=== PATIENT | female | born 1945 | race Caucasian/White ===

== ENCOUNTER → 2017-09-03 10:12 | Outpatient (CLI) | payer MEDICARE, SELFPAY ==
--- NOTE | 2017-09-03 10:17 | RAD_ITS ---
STUDY: X-RAY CHEST REASON FOR EXAM: Female, 71 years old. Dyspnea with exertion TECHNIQUE: Frontal and lateral views of the chest. COMPARISON: None. FINDINGS: The lungs are clear and expanded. There is no demonstrated pleural abnormality. Normal size heart. Normal mediastinum and elia. Normal visualized pulmonary arteries. Normal visualized aortic arch and descending thoracic aorta. There is a levoscoliosis of the thoracic spine. Normal visualized ribs, clavicles, and shoulders. There is no demonstrated abnormality of the visualized soft tissue structures of the upper abdomen. RAD/Chest PA and Lateral IMPRESSION: No acute cardiopulmonary disease. Electronically Signed: Ezekiel Henson DO at 23:57 EDT , Service support ,
== END ==
PROVIDERS: Family Provider Nurse Practitioner; PCP Nurse Practitioner; Visit Provider Internal Medicine
DX: R06.09 Other forms of dyspnea (principal)
CPT/HCPCS: 71046

== ENCOUNTER → 2017-09-18 13:10 | Outpatient (CLI) | payer MEDICARE, SELFPAY | PROVIDERS: Family Provider Nurse Practitioner; PCP Nurse Practitioner; Visit Provider Internal Medicine | DX: R00.1 Bradycardia, unspecified (principal); R06.09 Other forms of dyspnea | CPT/HCPCS: 93225; 93226 ==

== ENCOUNTER → 2017-09-19 14:32 | Outpatient (CLI) | payer MEDICARE, SELFPAY ==
--- NOTE | 2017-09-19 15:06 | ECHOD_ITS ---
Reason For Study: MACDONALD Procedure This was a 2D Doppler, Color Flow transthoracic echocardiogram. The exam was of fair technical quality due to body habitus. Exam performed in department. Left Ventricle Normal LV size. Left ventricular systolic function is normal. The estimated ejection fraction is 60 %. Normal diastology for age. No regional wall motion abnormalities noted. Right Ventricle Normal RV size. Normal systolic function. Atria The left atrium is moderately enlarged. Normal right atrium. No doppler evidence for ASD. Mitral Valve There is mild mitral annular calcification. Normal mitral valve. Mild (1+) mitral valve insufficiency. Tricuspid Valve Normal tricuspid valve. Mild tricuspid valve insufficiency. Right ventricular systolic pressure estimated to be 32 mmHg. Aortic Valve Trisinus/trileaflet aortic valve. Normal aortic valve. Pulmonic Valve The pulmonic valve is not well visualized. Trivial pulmonic valve insufficiency. Great Vessels Normal sized aortic root. Pericardium/Pleural No pericardial effusion. MMode/2D Measurements & Calculations LVIDd: 4.6 cm IVSd: 0.80 cm Ao root diam: 3.0 cm LVIDs: 3.3 cm LVPWd: 0.88 cm LA dimension: 3.9 cm RVDd: 3.6 cm FS: 27.5 % LAV(MOD-bp): 106.2 ml LA A4 area: 28.6 cm2 RA A4 area: 16.4 cm2 LAV(MOD-bp) Indexed: 51.6 ml/m2 LAV(MOD-sp2): 104.8 ml LAV(MOD-sp4): 100.0 ml Doppler Measurements & Calculations MV E max blake: 83.0 cm/sec Lat Peak E' Blake: 10.5 cm/sec Med Peak E' Blake: 8.6 cm/sec MV A max blake: 98.1 cm/sec E/E' lat: 7.9 E/E' med: 9.7 MV E/A: 0.85 Ao V2 max: 193.5 cm/sec LV V1 max: 127.9 cm/sec PA V2 max: 92.1 cm/sec Ao max P.0 mmHg LV V1 max P.5 mmHg Ao V2 mean: 125.4 cm/sec LV V1 mean P.1 mmHg Ao mean P.1 mmHg LV V1 mean: 83.0 cm/sec Ao V2 VTI: 44.9 cm LV V1 VTI: 29.6 cm TR max blake: 262.6 cm/sec TR max P.8 mmHg Interpretation Summary Left ventricular systolic function is normal. The estimated ejection fraction is 60 %. The left atrium is moderately enlarged. There is mild mitral annular calcification. Mild (1+) mitral valve insufficiency. Mild tricuspid valve insufficiency. Trivial pulmonic valve insufficiency. Right ventricular systolic pressure estimated to be 32 mmHg. Normal diastology for age. Ordering Physician: Christina Singleton Referring Physician: Christina Singleton Performed By: Brooklynn Lo, RDCS, RVT
== END ==
PROVIDERS: Family Provider Nurse Practitioner; PCP Nurse Practitioner; Visit Provider Internal Medicine
DX: R06.09 Other forms of dyspnea (principal)
CPT/HCPCS: 93306

== ENCOUNTER → 2018-10-20 | Outpatient (CLI) | payer MEDICARE, SELFPAY ==
--- NOTE | 2018-10-20 13:33 | BI_ITS ---
MAMMOGRAPHY - BILATERAL SCREENING REASON FOR EXAM: Female, 72 years old. Routine annual screening examination. PERTINENT HISTORY: Mother with breast cancer. Aunt with breast cancer. TECHNIQUE: Digital bilateral breast vazquez (3D mammographic acquisition) in the CC and MLO projections. 2-D mediolateral oblique (MLO) and craniocaudad (CC) views of both breasts were obtained. CAD: Full Field Digital Mammography with Computer Added Detection was performed. COMPARISON: Comparison is made with prior study dated May 25, 2014 and November 12, 2012. FINDINGS: Breast Composition: The breasts are almost entirely fatty. There are no dominant masses or suspicious calcifications. Stable 6.8 mm well-defined nodule in the upper outer aspect of the right breast. This most likely represents a small lymph node. Stable appearance of the bilateral secretory calcifications. Stable appearance of the small bilateral axillary lymph nodes. No other significant abnormalities are identified. There has been no significant change since the prior study. BI/SCREEN MAMM (CAD) W/VAZQUEZ BILAT IMPRESSION: Stable bilateral screening mammogram. Yearly follow-up mammogram recommended. (A) ASSESSMENT CATEGORY: BIRADS Category 2: Benign. A letter regarding these results will be sent to the patient by the facility within 30 days. Approximately 10% of breast cancers are not detected by mammography. A normal mammogram should not delay biopsy of a clinically suspicious abnormality. [id number] Electronically Signed: Alexx Vaughan, at 15:09 EDT , Service support ,
--- NOTE | 2018-10-20 13:46 | BD_ITS ---
STUDY: DUAL ENERGY X-RAY ABSORPTIOMETRY / DXA REASON FOR EXAM: Female, 72 years old. The patient is postmenopausal. Loss of height. TECHNIQUE: Bone Mineral Density (BMD) measurements of lumbar spine and bilateral hips were obtained. COMPARISON: None. FINDINGS: Lumbar Spine (L1-L4): g/cm2 (1.076) / T-score (-1.0) / Z-score (0.7) Findings are suggestive of normal bone density with a low fracture risk. Left Femur Total: g/cm2 (0.889) / T-score (-0.9) / Z-score (0.6) Left Femoral Neck: g/cm2 (0.771) / T-score (-1.9) / Z-score (-0.1) Right Femur Total: g/cm2 (0.882) / T-score (-1.0) / Z-score (0.6) Right Femoral Neck: g/cm2 (0.961) / T-score (-0.6) / Z-score (1.2) BD/Dexa Bone Density Study IMPRESSION: The patient is considered osteopenic as outlined below according to World Michele Organization (WHO) criteria with a moderate fracture risk. Reference Information: The T-score is the number of standard deviations above or below the standard which is normal for young adults at their peak bone mineral density. The World Health Organization (WHO) interprets the T-scores as follows: Above -1 Normal bone density Between -1 and -2.5 Osteopenia Equal to / or below -2.5 Osteoporosis As a practical clinical guideline, osteopenia may be graded as follows: Mild -1 through -1.5 Moderate -1.6 through -2.0 Severe -2.1 through -2.4 The Z-score is the number of standard deviations above or below age-matched controls. A Z-score of less than -1.5 would be considered abnormal. References: 1. NIH Osteoporosis and Related Bone Diseases http://www.osteo.org 2. International Society for Clinical Densitometry http://www.iscd.org 3. National Osteoporosis Foundation http://www.nof.org Electronically Signed: Alexx Vaughan, at 10:06 EDT , Service support ,
[2018-10-20 14:41] LABS: Thyroid Stim Hormone (TSH) 0.35 uIU/mL (0.358-3.74)
== END | disposition home or self-care (01) ==
PROVIDERS: Family Provider Nurse Practitioner; PCP Nurse Practitioner; Referring Provider Nurse Practitioner; Visit Provider Nurse Practitioner
DX: Z12.31 Encounter for screening mammogram for malignant neoplasm of breast (principal); Z78.0 Asymptomatic menopausal state; E03.9 Hypothyroidism, unspecified
CPT/HCPCS: 36415; 77063; 77067; 77080; 84443

== ENCOUNTER 2019-02-17 13:03 | Observation (INO) | payer MEDICARE, SELFPAY ==
[2019-02-17] VITALS (8 sets, daily range): BP systolic 128–156; BP diastolic 55–94; PULSE 62–76; RESP 18–24; TEMP 36.7–36.8; O2SAT 93–97; BMI 47.9; BMI 46.0
--- NOTE | 2019-02-17 13:24 | RAD_ITS ---
STUDY: X-RAY CHEST REASON FOR EXAM: Female, 73 years old. Atrial fibrillation. TECHNIQUE: Single AP portable view of the chest. COMPARISON: Comparison is made with prior study dated September 03, 2017. FINDINGS: EKG electrodes are seen. The lungs are clear and expanded. Scattered calcified granulomas. There is no demonstrated pleural abnormality. Normal size heart. Normal mediastinum and elia. Normal visualized pulmonary arteries. There is atherosclerotic calcification of the aortic arch with tortuosity. Normal visualized thoracic spine. Normal visualized ribs, clavicles, and shoulders. There is no demonstrated abnormality of the visualized soft tissue structures of the upper abdomen. RAD/Chest 1 View (Portable) IMPRESSION: No acute abnormality is seen. Electronically Signed: Alexx Vaughan, at 13:50 EST , Service support ,
--- NOTE | 2019-02-17 13:25 | EKG12_ITS ---
Test Reason : NEW AFIB Blood Pressure : / mmHG Vent. Rate : 052 BPM Atrial Rate : 048 BPM P-R Int : 000 ms QRS Dur : 104 ms QT Int : 350 ms P-R-T Axes : 000 003 187 degrees QTc Int : 325 ms Atrial fibrillation with slow ventricular response Nonspecific ST and T wave abnormality Abnormal ECG Confirmed by ARNAUD GONZALES, TYLER ([id number]), editor & co founder BOB ORTIZ ([id number]) on 02/23/2019 1:08:26 PM Referred By: Yohannes Bhatia Confirmed By:NEYDA LARES MD
--- NOTE | 2019-02-17 13:30 | ED.VIS.GEN ---
History of Present Illness Chief Complaint: Palpitations Informant: Patient Onset: Days Narrative: Patient transferred via EMS from her PCPs office due to new onset atrial fibrillation. Nurse practitioner seen the patient has been adjusting her thyroid medication over the last several months. Patient states she will initially get some palpitations. EKG today in the office reveals atrial fibrillation. Patient did wear a Holter monitor last year and had some abnormalities noted, primarily with frequent ventricular and atrial ectopic beats. Patient never followed up with cardiology about this. - Past Medical History (1) Hypertension Status: Chronic (2) High cholesterol Status: Acute (3) COPD (chronic obstructive pulmonary disease) Status: Chronic (4) Depression Status: Acute Past Medical History - Allergies and Home Meds Allergies/Adverse Reactions: Allergies Penicillins Allergy (Verified 02/17/19 14:31) Rash aspirin Adverse Reaction (Verified 02/17/19 13:09) Rash redness from knees down Primary Care Physician: Thuy Anne NP-C [Primary Care Provider] - Prior records reviewed: Yes Smoking Status: Never smoker Review of Systems General: Denies: Chills, Fever Eyes: Denies: Visual changes - bilaterally ENT: Denies: Bilateral ear pain Cardiovascular: Reports: Palpitations. Denies: Chest pain Respiratory: Denies: Dyspnea, Cough Gastrointestinal: Denies: Abdominal pain, Nausea, Vomiting, Diarrhea Genitourinary: Denies: Dysuria Musculoskeletal: Denies: Extremity Pain Skin: Denies: Rash Neurological: Denies: Headache, Weakness Hematologic: Denies: Easy bruising, Easy bleeding Allergy: Denies: Uticaria Physical Exam Vital Signs/Narrative: Vital Signs Temp Pulse Resp BP Pulse Ox 02/17/19 13:05 98.1 F 67 18 130/84 H 96 Inital Vital Signs reviewed: Yes General: Well nourished, Well developed Head: Normocephalic ENT: Moist mucous membranes Neck: Supple Cardiovascular: Irregular Respiratory: No distress, CTA bilaterally Abdomen: Soft, Nontender Extremities: Nontender Skin: Normal color Neurological: Alert, Oriented x3 Psychological: Normal affect Diagnostic/Tx/Re-eval Impressions Chest X-Ray 02/17/19 13:24 IMPRESSION: No acute abnormality is seen. Electronically Signed: Alexx Vaughan, at 13:50 EST , Service support , 02/17/19 13:24 Chest 1 View (Portable) [RAD] Stat Laboratory Results 02/17/19 02/17/19 13:20 13:20 WBC 6.6 RBC 4.28 Hgb 13.4 Hct 42.1 MCV 98.4 MCH 31.3 MCHC 31.8 L RDW Std Deviation 46.5 H RDW Coeff of Chuck 13.0 Plt Count 223 MPV 10.4 Immature Gran % (Auto) 0.200 Neut % (Auto) 55.9 Lymph % (Auto) 32.3 [place] % (Auto) 8.7 Eos % (Auto) 2.4 Baso % (Auto) 0.5 Absolute Neuts (auto) 3.7 Absolute Lymphs (auto) 2.12 Nucleated RBC % 0 Sodium 142 Potassium 3.8 Chloride 107 Carbon Dioxide 27.0 Anion Gap 8 BUN 8 Creatinine 0.90 Estim Creat Clear Calc 44.69 Est GFR (MDRD) Af Amer 79 Est GFR (MDRD) Non-Af 65 BUN/Creatinine Ratio 8.8 L Glucose 91 Calcium 9.1 Troponin I < 0.015 TSH 0.53 - EKG Initial EKG Interpretation: Atrial Fibrillation - A. fib with ventricular rate of 52. T wave flattening noted. - Medical Decision Making Patient is given IV fluids. Blood work is grossly unremarkable. Patient be admitted for further evaluation. ED Disposition - Plan for ED Patient: Disposition: Acute Care Hospital [facility] Diagnosis: New onset atrial fibrillation Referrals: Thuy Anne, [employer] [Primary Care Provider] -
[2019-02-17 13:36] LABS: Absolute Lymphocyte Count 2.12 X10^3/uL (0.83-4.51); Absolute Neutrophil Count 3.7 X10^3/uL (2.0-7.7); Basophil# 0.03 X10^3/uL; Basophil% 0.5 % (0-1); Eosinophil# 0.16 X10^3/uL; Eosinophils% 2.4 % (0-5); Hematocrit 42.1 % (37-47); Hemoglobin 13.4 g/dL (12.0-15.0); Lymphocyte # 2.12 X10^3/ul (4.0); Lymphocyte % 32.3 % (19-41); Mean Corp Hgb Conc 31.8 g/dL (32-36); Mean Corpuscular Hgb 31.3 pg (27.0-32.0); Mean Corpuscular Volume 98.4 fL (81-99); Mean Platelet Vol. 10.4 fl (6.2-12.0); Monocyte# 0.57 X10^3/uL; Monocyte% 8.7 % (0-10); NRBC Flagged by Analyzer 0 % (0-5); Neutrophil # 3.68 X10^3/uL (2.7-7.7); Neutrophil % 55.9 % (47-70); Platelet Count 223 K/mm3 (150-450); RBC Distribution Width SD 46.5 fl (35.1-43.9); Red Blood Count 4.28 M/mm3 (4.2-5.4); White Blood Count 6.6 K/mm3 (4.4-11.0)
[2019-02-17 13:55] LABS: Anion Gap 8 (5-15); BUN 8 mg/dL (7-18); BUN/Creat Ratio 8.8 RATIO (10-20); Calcium,Total 9.1 mg/dL (8.5-10.1); Chloride 107 mmol/L (98-107); EST Glomerular Filtration Rate 65 mL/min (>60); Est Glom Filt Rate - Afr Amer 79 mL/min (>60); Estimated Creatinine Clearance 44.69 ml/min; Glucose 91 mg/dL (74-106); Potassium 3.8 mmol/L (3.5-5.1); Sodium Level 142 mmol/L (136-145); Thyroid Stim Hormone (TSH) 0.53 uIU/mL (0.358-3.74)
--- NOTE | 2019-02-17 14:13 | NURSING ---
MED SURG TERELETSKY HEMATOMA LEFT PERIORBITAL AREA
--- NOTE | 2019-02-17 14:48 | NURSING ---
Addendum entered by Carol Barrow 02/17/19 14:50: NEW ONSET AFIB PCU SAGE Original Note: DR CAZARES
--- NOTE | 2019-02-17 15:02 | HP.PCM_ITS ---
History of Present Illness Date of Admission: 02/17/19 Chief Complaint: Abnormal EKG The patient is a 73 year old F with a PMH as below who presented to her PCPs office for routine follow-up, they have been adjusting her hypothyroidism medications because she is been having intermittent episodes of palpitations. On arrival to her PCPs office they performed an EKG and thought that she was in A. fib and therefore transferred her to the ER. She is on 360 mg of Cardizem p.o. daily therefore her rate is very controlled pump. On the EKG in the ER was felt that there is A. fib versus flutter. She denies any chest pain, lightheadedness, or dizziness. She had an echo about a year ago with a normal EF the left atrium was moderately enlarged at that time. She also had a Holter monitor which per report demonstrated largely PVCs and she was supposed to follow-up with cardiology but she never did. Past Medical History Past Medical History (Chronic Problems): Chronic Problems Hypertension (Chronic) COPD (chronic obstructive pulmonary disease) (Chronic) Allergies Penicillins Allergy (Verified 02/17/19 14:31) Rash aspirin Adverse Reaction (Verified 02/17/19 13:09) Rash redness from knees down Home Medications: Ambulatory Orders Medication Instructions Recorded Atorvastatin Calcium [Lipitor] 20 mg PO QHS 02/17/19 Citalopram [Celexa] 20 mg PO DAILY 02/17/19 Diltiazem HCl [Cardizem Cd] 360 mg PO DAILY 02/17/19 Furosemide [Lasix] 40 mg PO DAILY 02/17/19 Levothyroxine [Synthroid] 25 mcg PO DAILY 02/17/19 Surgical History: appendectomy Smoking Status: Never smoker Tobacco Use: Secondhand Alcohol: None Drugs: None - *Family History Maternal History Items: Cancer Paternal History Items: Heart Disease Review of Systems Constitutional: Denies: Chills, Fever, Weight Change HEENT: Denies: Head Aches, Sinus Congestion, Sinus Drainage Cardiovascular: Denies: Chest Pain, Palpitations Respiratory: Denies: Cough, Shortness of breath at rest, Sputum production Gastrointestinal: Denies: Abdominal Pain, Nausea, Vomiting Genitourinary: Denies: Dysuria Musculoskeletal: Denies: Joint Pain, Joint Tenderness Skin: Denies: Rash, Wounds Neurological: Denies: Numbness, Tingling, Focal weakness Psychiatric: Denies: Anxiety, Depression Hematologic/ Lymphatic: Denies: Easy Bruising, Easy Bleeding VTE Information - Inpt Only VTE Present on Admission: No Patient Problems: Active and Suspected Problems High cholesterol (Acute) Depression (Acute) New onset atrial fibrillation (Acute) - Physical Exam Vitals/I&O's: Vital Signs Temp Pulse Resp BP Pulse Ox 98.1 F 65 18 150/94 H 95 02/17/19 13:05 02/17/19 14:04 02/17/19 14:04 02/17/19 14:04 02/17/19 14:04 Oxygen Delivery Method Room Air Weight: 262 lb 2.074 oz Body Mass Index (BMI) 47.9 General: Alert, Oriented x3, Cooperative, No apparent distress HEENT: Atraumatic, PERRLA, EOMI, Normocephalic Oral: Moist Mucosa Neck: Supple, No JVD Lungs: Clear to auscultation, Normal air movement, No rhonchi, No wheeze, No rales, Diminished Cardiovascular: Regular rate, Regular Rhythm, Normal S1, Normal S2, No murmurs Abdomen: Soft, Non Tender, Non-Distended, No Hepato-splenomegaly, Obese Extremities: Capillary Refill Less than 3 Seconds, Edema - 1+ pitting bilaterally Skin: No rashes, No breakdown Neurological: Neuro grossly intact, Sensory exam intact to light touch and pain Laboratory Results 02/17/19 13:20: WBC 6.6, RBC 4.28, Hgb 13.4, Hct 42.1, MCV 98.4, MCH 31.3, MCHC 31.8 L, RDW Std Deviation 46.5 H, RDW Coeff of Chuck 13.0, Plt Count 223, MPV 10.4, Immature Gran % (Auto) 0.200, Neut % (Auto) 55.9, Lymph % (Auto) 32.3, [place] % (Auto) 8.7, Eos % (Auto) 2.4, Baso % (Auto) 0.5, Absolute Neuts (auto) 3.7, Absolute Lymphs (auto) 2.12, Nucleated RBC % 0 02/17/19 13:20: Sodium 142, Potassium 3.8, Chloride 107, Carbon Dioxide 27.0, Anion Gap 8, BUN 8, Creatinine 0.90, Estim Creat Clear Calc 44.69, Est GFR (MDRD) Af Amer 79, Est GFR (MDRD) Non-Af 65, BUN/Creatinine Ratio 8.8 L, Glucose 91, Calcium 9.1, Troponin I < 0.015, TSH 0.53 Current Medications Sodium Chloride () 1,000 mls @ 15 mls/hr IV .Q48H JENNIFER Assessment/Plan All Active Problems High cholesterol (Acute) Depression (Acute) New onset atrial fibrillation (Acute) 1. New onset A. fib/flutter/HTN/HLD/lower extremity edema -Previous echo with a normal EF and enlarged left atrium -We will repeat echo during her stay -Consult to cardiology -Continue with her Cardizem and will start anticoagulation with Eliquis given that she has hypertension, and she is 73 years old and a female -Systolic blood pressures are controlled in the 140s -Continue with Lipitor, lisinopril, and Lasix 2. COPD -Currently not in exacerbation -She has been stable on Spiriva 3. Hypothyroidism -Been having intermittent episodes of palpitations and has had her dosing changed -Continue with her home Synthroid, and will obtain a TSH 4. Anxiety/depression -Stable -Continue with Celexa 5. Morbid obesity -BMI of 47 -Discussed lifestyle modifications DVT: Eliquis Code Visit OBSV E&M: [id number] Initial observation care L3
[2019-02-17] MEDS: APIXABAN 5 MG TABLET PO (15:03)
--- NOTE | 2019-02-17 15:42 | ECHOD_ITS ---
Reason For Study: AFIB/FLUTTER Procedure This was a 2D Doppler, Color Flow transthoracic echocardiogram. Exam performed in department. Left Ventricle Normal size and thickness. The estimated ejection fraction is 55 %. Unable to assess diastolic dysfunction due to arrhythmia. No regional wall motion abnormalities noted. Right Ventricle Normal size and thickness. Normal systolic function. Atria The left atrium is severely enlarged. Normal right atrium. Normal atrial septum. Mitral Valve Mild diffuse mitral valve thickening. Mild mitral annular calcification extending into the posterior leaflet. Tricuspid Valve Normal tricuspid valve. Trivial tricuspid valve insufficiency. Right ventricular systolic pressure estimated to be 41 mmHg. Mild pulmonary hypertension. Aortic Valve Normal aortic valve. Trisinus/trileaflet aortic valve. Pulmonic Valve Normal pulmonic valve. Great Vessels Normal aortic root. Normal arch. Normal inferior vena cava. Inferior vena cava collapse with sniff. Pericardium/Pleural No pericardial effusion. MMode/2D Measurements & Calculations LVIDd: 4.6 cm IVSd: 0.84 cm Ao root diam: 3.3 cm LVIDs: 3.4 cm LVPWd: 0.89 cm RVDd: 3.2 cm FS: 26.4 % LAV(MOD-bp): 91.4 ml LA A4 area: 26.5 cm2 LA dimension(2D): 4.9 cm LAV(MOD-bp) Indexed: 43.9 ml/m2 LAV(MOD-sp2): 88.8 ml LAV(MOD-sp4): 88.9 ml RA A4 area: 15.4 cm2 Doppler Measurements & Calculations MV E max melissa: 105.4 cm/sec Ao V2 max: 127.6 cm/sec LV V1 max: 94.3 cm/sec Ao max P.5 mmHg LV V1 max P.6 mmHg PA V2 max: 104.8 cm/sec TR max melissa: 253.6 cm/sec TR max P.7 mmHg Interpretation Summary The estimated ejection fraction is 55 %. Unable to assess diastolic dysfunction due to arrhythmia. The left atrium is severely enlarged. Trivial tricuspid valve insufficiency. Right ventricular systolic pressure estimated to be 41 mmHg. Mild pulmonary hypertension. Compared to echo report dated 08/19/2017, LV function has remained the same, but pt now appears to be in atrial fibrillation. RVSP has increased from 32 to 41 mm Hg. Ordering Physician: Lupillo Guerra Referring Physician: Thuy Anne Performed By: Brooklynn Lo RDCS, RVT
[2019-02-17 16:16] LABS: Bedside Glucose 96 mg/dL (70-110)
--- NOTE | 2019-02-17 16:27 | STE_ITS ---
Reason For Study: Atrial Fibrillation Stress Results Protocol: Dobutamine Stress Echo Maximum Predicted HR: 148 bpm Target HR: 126 bpm % Maximum Predicted HR: 102 % DurationHeart Rate Stage (mm:ss) (bpm) BP Comment Baseline 82 145/90No Chest Pain DSE 10 MCG 3:12 74 143/89No Chest Pain DSE 20 MCG 3:18 151 149/96No Chest Pain Recovery 93 135/75No Chest Pain Stress Duration: 6:30 mm:ss Maximum Stress HR: 151 bpm METS: 1 Baseline Echocardiogram Findings The estimated ejection fraction is 60 %. Stress Echo Wall motion Data Resting WM Intermediate WM Stress WM Resting Wall Motion No regional wall motion abnormalities noted. EKG Data Atrial flutter with controlled ventricular response. The patient was titrated from 10 mcg to a maximum of 20 mcg of dobutamine during the stress. The maximum heart rate attained was 157 beats per minute. This was 106% of maximum predicted heart rate. During dobutamine infusion, there were no ST or T wave changes noted to suggest ischemia. No clinical angina was noted. Interpretation Summary The estimated ejection fraction is 60 %. Normal, adequate, dobutamine echocardiogram. Negative for ischemia by EKG and echocardiographic criteria. No anginal symptoms noted. Baseline atrial flutter with controlled ventricular response with rare PVCs during infusion. Test terminated due to attainment of target heart rate. Final LVEF is 75%. Patient tolerated procedure well. No complications. Ordering Physician: Delvin Cerda Referring Physician: Yohannes Bhatia D.O. Performed By: Brooklynn Lo RDCS, RVT
--- NOTE | 2019-02-17 16:53 | CON.PCM_ITS ---
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 In addition she has a history of hypertension has been treated with Cardizem CD 360 mg p.o. daily by her PCP. Apparently she went to her PCP for routine visit and has been asymptomatic and she was found to have an irregular rhythm. An EKG demonstrated atrial fibrillation with controlled ventricular response and she was referred for admission to the emergency room. Patient denies any chest pain, angina, but has noted palpitations particularly when she gets anxious. She is on no anticoagulation therapy at home nor has she been offered that in the past. On further history she denies any stress test, or previous catheterization. She did have an echocardiogram on 09/19/2017 which showed an EF of 60%, RVSP of 32 mmHg, moderate right atrial enlargement, 1+ tricuspid regurgitation. Stress test is pending. Her initial EKG showed atrial fibrillation with controlled ventricular response and subtle nonspecific inferolateral ST segment changes. Her troponins are negative x1. Patient apparently had a significant pause of 3 seconds which was asymptomatic while she was in the emergency room Past Medical History Allergies/Adverse Reactions: Allergies Penicillins Allergy (Verified 02/17/19 14:31) Rash aspirin Adverse Reaction (Verified 02/17/19 13:09) Rash redness from knees down Home Medications: Ambulatory Orders Medication Instructions Recorded Atorvastatin Calcium [Lipitor] 20 mg PO QHS 02/17/19 Cholecalciferol (Vitamin D3) 2,000 unit PO DAILY 02/17/19 [Vitamin D3] Citalopram [Celexa] 20 mg PO DAILY 02/17/19 Diltiazem HCl [Cardizem Cd] 360 mg PO DAILY 02/17/19 Furosemide [Lasix] 40 mg PO DAILY 02/17/19 Levothyroxine [Synthroid] 25 mcg PO DAILY 02/17/19 Lisinopril 20 mg PO BID 02/17/19 Loratadine 10 mg PO DAILY 02/17/19 Nystatin 1 applic TP DAILY PRN PRN 02/17/19 Tiotropium [place] [Spiriva] 1 puff INHALATION DAILY 02/17/19 Past Medical History (Chronic Problems): Chronic Problems Hypertension (Chronic) COPD (chronic obstructive pulmonary disease) (Chronic) Surgical History: appendectomy - *Family History Maternal History Items: Cancer Paternal History Items: Heart Disease Smoking Status: Never smoker Tobacco Use: Secondhand Alcohol: None Drugs: None Review of Systems - Review of Systems General: Denies: Fever, Night Sweats, Fatigue Cardiovascular: Denies: Chest Discomfort, Shortness of Breath, Orthopnea, PND, Peripheral Edema, Palpitations, Lightheadedness, Dizziness, Near Syncope, Syncope Respiratory: Denies: Cough, Sputum Production, Hemoptysis Gastrointestinal: Denies: Hematemesis, Hematochezia, Melena Genitourinary: Denies: Dysuria, Hematuria Skin: Denies: Rash Subjectve: Patient laying in bed, no acute distress. Objective: Vital Signs Temp Pulse Resp BP Pulse Ox 98.0 F 68 19 H 156/91 H 94 02/17/19 15:45 02/17/19 15:54 02/17/19 15:45 02/17/19 15:45 02/17/19 15:45 Oxygen Delivery Method Room Air Weight: 250 lb Body Mass Index (BMI) 46.0 General: Awake, Alert, Oriented x 3 HEENT: PERRL, EOMI, Sclera Non Icteric Neck: Supple, Good ROM, No Lymph Node Enlargement Lungs: Clear to auscultation Cardiovascular: Irregular Rhythm, Normal S1, Normal S2, No Murmurs, No Rubs, No Gallops 02/17/19 13:20: WBC 6.6, RBC 4.28, Hgb 13.4, Hct 42.1, MCV 98.4, MCH 31.3, MCHC 31.8 L, Plt Count 223, MPV 10.4, Immature Gran % (Auto) 0.200, Neut % (Auto) 55.9, Lymph % (Auto) 32.3, [place] % (Auto) 8.7, Eos % (Auto) 2.4, Baso % (Auto) 0.5, Absolute Neuts (auto) 3.7, Nucleated RBC % 0 02/17/19 13:20: Sodium 142, Potassium 3.8, Chloride 107, Carbon Dioxide 27.0, Anion Gap 8, BUN 8, Creatinine 0.90, Est GFR (MDRD) Af Amer 79, Est GFR (MDRD) Non-Af 65, BUN/Creatinine Ratio 8.8 L, Glucose 91, Calcium 9.1, Troponin I < 0.015 Rhythm: EKG: ECHO: Pending Stress Test: Pending Cardiac Cath: PCI: CT Surgery: Holter monitor: EPS: PPM: CXR: Chest CT Scan: Assessment/Plan #1. Atrial fibrillation: The patient has newly diagnosed atrial fibrillation of unknown duration, and is been on Cardizem CD 360 mg p.o. daily for heart rate and blood pressure control. Patient is on no anticoagulation, and apparently had a sleep study in the past which was essentially negative although she does wear O2 therapy at night which she describes for COPD although she has never had pulmonary function test to her knowledge. At this point her heart rate is well controlled in fact it is on the slow side, I would recommend reducing her Cardizem CD to 300 mg p.o. daily once her dobutamine echocardiogram is been completed, starting Lovenox 1 mg/kg subcu twice daily until her stress test has been completed. If her stress echocardiogram is negative for inducible ischemia would recommend transitioning her to Eliquis per protocol. If her stress test is abnormal, she will require a diagnostic coronary angiogram and possibly a right heart catheterization to assess her pulmonary pressures. In addition it is been over one year since her last echocardiogram I would recommend a repeat 2D echo with Doppler. If the patient does not require catheterization and tolerates Eliquis therapy she will undergo a DC cardioversion in 3 weeks time. In addition recommend checking her TSH and T4 as she does have a history of hypothyroidism. In addition recommend discontinuing her lisinopril given her dry hacking cough and switching her to Cozaar 25 mg p.o. daily and titrating up from there. She will continue her Lasix 40 mg p.o. daily. 2. Hyperlipidemia: Recommend obtaining a fasting lipid profile. 3. Thank you very much for the opportunity to participate in the cardiac care of your patient. Consultation time took place between 440 and 5:23 PM. Code Visit Inpatient E&M: 62247 Init Hosp L2
[2019-02-17 18:01] LABS: Cholesterol 151 mg/dL (200); High Density Lipoprotein 82 mg/dL; Triglycerides 69 mg/dL; Very Low Density Lipoprotein 14 mg/dL (5-40)
[2019-02-17] MEDS: Enoxaparin 120 MG/0.8 ML Syringe 110 MG SC (18:22)
[2019-02-17 20:51] LABS: Bedside Glucose 94 mg/dL (70-110)
[2019-02-18] VITALS (9 sets, daily range): BP systolic 127–152; BP diastolic 74–95; PULSE 70–92; RESP 16–24; TEMP 36.8–37.1; O2SAT 93–97
[2019-02-18] MEDS: Enoxaparin 120 MG/0.8 ML Syringe 110 MG SC (06:54)
[2019-02-18] MEDS: Levothyroxine 25 MCG TABLET PO (06:54)
[2019-02-18] MEDS: Ipratropium 0.5 MG/2.5 ML SOLUTION INHALATION ×2 (07:05→13:02)
[2019-02-18 07:40] LABS: Bedside Glucose 108 mg/dL (70-110)
[2019-02-18] MEDS: dilTIAZem CD 300 MG Capsule PO (10:35)
[2019-02-18] MEDS: Citalopram 20 MG Tablet PO (10:36)
[2019-02-18] MEDS: Loratadine 10 MG Tablet PO (10:36)
[2019-02-18] MEDS: Losartan Potassium 25 MG Tablet PO (10:36)
[2019-02-18] MEDS: Furosemide 40 MG Tablet PO (10:37)
[2019-02-18 11:41] LABS: Bedside Glucose 116 mg/dL (70-110)
--- NOTE | 2019-02-18 12:50 | PCM.PN.HOSP ---
Patient Problems: Active and Suspected Problems High cholesterol (Acute) Depression (Acute) New onset atrial fibrillation (Acute) Subjective: Doing well, no issues overnight Vitals/I&O's: Vital Signs Temp Pulse Resp BP Pulse Ox 98.3 F 81 17 140/85 H 96 02/18/19 10:23 02/18/19 10:23 02/18/19 10:23 02/18/19 10:23 02/18/19 10:23 Oxygen Flow Rate (L/min) 2 Oxygen Delivery Method Room Air Weight: 250 lb Body Mass Index (BMI) 46.0 Intake and Output for Last 24 Hours 02/16/19 02/17/19 02/18/19 23:59 23:59 23:59 Intake Total 750 / 750 875 / 875 Balance 750 / 750 875 / 875 General: Alert, Oriented x3, Cooperative, No apparent distress HEENT: Atraumatic, PERRLA, EOMI, Normocephalic Oral: Moist Mucosa Neck: Supple, No JVD Lungs: Clear to auscultation, Normal air movement, No rhonchi, No wheeze, No rales, Diminished Cardiovascular: Regular rate, Regular Rhythm, Normal S1, Normal S2, No murmurs Abdomen: Soft, Non Tender, Non-Distended, No Hepato-splenomegaly, Obese Extremities: Capillary Refill Less than 3 Seconds, Edema - 1+ pitting bilaterally Skin: No rashes, No breakdown Neurological: Neuro grossly intact, Sensory exam intact to light touch and pain Psychiatric: Normal affect, Appropriate Laboratory Results 02/17/19 13:20: WBC 6.6, RBC 4.28, Hgb 13.4, Hct 42.1, MCV 98.4, MCH 31.3, MCHC 31.8 L, RDW Std Deviation 46.5 H, RDW Coeff of [place] 13.0, Plt Count 223, MPV 10.4, Immature Gran % (Auto) 0.200, Neut % (Auto) 55.9, Lymph % (Auto) 32.3, [place] % (Auto) 8.7, Eos % (Auto) 2.4, Baso % (Auto) 0.5, Absolute Neuts (auto) 3.7, Absolute Lymphs (auto) 2.12, Nucleated RBC % 0 02/17/19 13:20: Sodium 142, Potassium 3.8, Chloride 107, Carbon Dioxide 27.0, Anion Gap 8, BUN 8, Creatinine 0.90, Estim Creat Clear Calc 44.69, Est GFR (MDRD) Af Amer 79, Est GFR (MDRD) Non-Af 65, BUN/Creatinine Ratio 8.8 L, Glucose 91, Calcium 9.1, Troponin I < 0.015, TSH 0.53 02/17/19 13:20: Triglycerides 69, Cholesterol 151, LDL Cholesterol 55, VLDL Cholesterol 14, HDL Cholesterol 82 02/17/19 16:05: POC Glucose 96 02/17/19 20:38: POC Glucose 94 02/18/19 07:01: POC Glucose 108 02/18/19 11:35: POC Glucose 116 H Current Medications Atorvastatin Calcium (Lipitor) 20 mg PO QHS [facility] Citalopram Hydrobromide (Celexa) 20 mg PO DAILY [facility] Last Admin: 02/18/19 10:36 Dose: 20 mg Documented by: Dextrose (D50w Syringe) 0 gm IV X1 PRN; Protocol PRN Reason: Hypoglycemia Diltiazem HCl (Cardizem Cd) 300 mg PO DAILY [facility] Last Admin: 02/18/19 10:35 Dose: 300 mg Documented by: Enoxaparin Sodium (Lovenox) 110 mg SC Q12@0600,1800 [facility] Last Admin: 02/18/19 06:54 Dose: 110 mg Documented by: Furosemide (Lasix) 40 mg PO DAILY [facility] Last Admin: 02/18/19 10:37 Dose: 40 mg Documented by: Glucagon () 1 mg IM .X1 PRN PRN Reason: Hypoglycemia Insulin Human Lispro (Humalog Kwikpen (Bkc)) 0 unit SC [facility]; Protocol Last Admin: 02/18/19 11:45 Dose: Not Given Documented by: Ipratropium [place] (Atrovent) 0.5 mg INHALATION Q6HWA.RT [facility] Last Admin: 02/18/19 07:05 Dose: 0.5 mg Documented by: Levothyroxine Sodium (Synthroid) 25 mcg PO DAILY@0600 [facility] Last Admin: 02/18/19 06:54 Dose: 25 mcg Documented by: Loratadine (Claritin) 10 mg PO DAILY [facility] Last Admin: 02/18/19 10:36 Dose: 10 mg Documented by: Losartan Potassium (Cozaar) 25 mg PO DAILY [facility] Last Admin: 02/18/19 10:36 Dose: 25 mg Documented by: Nystatin (Mycostatin) 1 applic TOPICAL DAILY PRN PRN PRN Reason: skin Sodium Chloride () 10 - 40 ml IV UD PRN PRN Reason: SALINE FLUSH STROKE Vital Signs/Narrative: Vital Signs Temp Pulse Resp BP Pulse Ox 02/18/19 10:23 98.3 F 81 17 140/85 H 96 Medical Necessity - Tobacco Use Smoking Status: Never smoker Tobacco Use: Secondhand Assessment/Plan All Active Problems High cholesterol (Acute) Depression (Acute) New onset atrial fibrillation (Acute) 1. New onset A. fib/flutter/HTN/HLD/lower extremity edema -Previous echo with a normal EF and enlarged left atrium -We will repeat echo during her stay as well as a dobutamine stress echo per cardio -Consult to cardiology -Continue with her Cardizem and decrease dose. Hold lisinopril d/t cough -She will need eliquis but will hold pending determination of need for cath -Systolic blood pressures are controlled in the 140s -Continue with Lipitor, and Lasix 2. COPD -Currently not in exacerbation -She has been stable on Spiriva 3. Hypothyroidism -Been having intermittent episodes of palpitations and has had her dosing changed -Continue with her home Synthroid, and will obtain a TSH 4. Anxiety/depression -Stable -Continue with Celexa 5. Morbid obesity -BMI of 47 -Discussed lifestyle modifications DVT: Lovenox
--- NOTE | 2019-02-18 12:57 | PN.CARD_ITS ---
Subjectve: Patient doing well today, telemetry shows atrial flutter with controlled ventricular response. Dobutamine echocardiogram negative. Echocardiogram sh owed EF of 55% with RVSP of 41 mmHg. Objective: Vital Signs Temp Pulse Resp BP Pulse Ox 98.3 F 81 17 140/85 H 96 02/18/19 10:23 02/18/19 10:23 02/18/19 10:23 02/18/19 10:23 02/18/19 10:23 Oxygen Flow Rate (L/min) 2 Oxygen Delivery Method Room Air Weight: 250 lb Body Mass Index (BMI) 46.0 Intake and Output for Last 24 Hours 02/16/19 02/17/19 02/18/19 23:59 23:59 23:59 Intake Total 750 / 750 875 / 875 Balance 750 / 750 875 / 875 General: Awake, Alert, Oriented x 3 HEENT: PERRL, EOMI, Sclera Non Icteric Neck: Supple, Good ROM, No Lymph Node Enlargement Lungs: Clear to auscultation Cardiovascular: Irregular Rhythm, Normal S1, Normal S2, No Murmurs, No Rubs, No Gallops Vascular: No Carotid Bruits, Normal Femoral Pulses, Normal Radial Pulses, Normal Dorsalis Pedal Pulse, Normal Posterior Tibial Pulses Abdomen: Bowel Sounds Present, Soft, Non Tender, No HSM, No Organomegaly Extremities: No Cyanosis, No Clubbing, No edema Neurological: No Focal Motor or Sensory Deficit 02/17/19 13:20: WBC 6.6, RBC 4.28, Hgb 13.4, Hct 42.1, MCV 98.4, MCH 31.3, MCHC 31.8 L, Plt Count 223, MPV 10.4, Immature Gran % (Auto) 0.200, Neut % (Auto) 55.9, Lymph % (Auto) 32.3, [place] % (Auto) 8.7, Eos % (Auto) 2.4, Baso % (Auto) 0.5, Absolute Neuts (auto) 3.7, Nucleated RBC % 0 02/17/19 13:20: Sodium 142, Potassium 3.8, Chloride 107, Carbon Dioxide 27.0, Anion Gap 8, BUN 8, Creatinine 0.90, Est GFR (MDRD) Af Amer 79, Est GFR (MDRD) Non-Af 65, BUN/Creatinine Ratio 8.8 L, Glucose 91, Calcium 9.1, Troponin I < 0.015 02/17/19 13:20: Triglycerides 69, Cholesterol 151, LDL Cholesterol 55, VLDL Cholesterol 14, HDL Cholesterol 82 Rhythm: EKG: ECHO:LVEF of 55%, RVSP of 41 mmHg. Stress Test:Negative dobutamine echocardiogram. Cardiac Cath: PCI: CT Surgery: Holter monitor: EPS: PPM: CXR: Chest CT Scan: Medical Necessity - Tobacco Use Smoking Status: Never smoker Tobacco Use: Secondhand Assessment/Plan #1. Atrial fibrillation: The patient has newly diagnosed atrial fibrillation of unknown duration, and Has been on Cardizem CD 360 mg p.o. daily for heart rate and blood pressure control. Patient Was on no anticoagulation, and apparently had a sleep study in the past which was essentially negative although she does wear O2 therapy at night which she describes for COPD although she has never had pulmonary function test to her knowledge. At this point her heart rate is well controlled in fact it is on the slow side, I would recommend reducing her Cardizem CD to 300 mg p.o. daily. Her dobutamine echocardiogram is negative for inducible ischemia, I do not believe she requires diagnostic coronary angiography at this time. For that reason recommend discontinuation of Eliquis Lovenox, and starting on Eliquis per protocol for atrial fibrillation. 2D echo with Doppler done today, 02/18/2019 shows relatively intact LV function with an EF around 55% and an RVSP of 41 mmHg. In addition recommend discontinuing her lisinopril given her dry hacking cough and switching her to Cozaar 25 mg p.o. daily and titrating up from there. She will continue her Lasix 40 mg p.o. daily. Her TSH is normal. We will make arrangements for the patient undergo elective DC cardioversion in 3 weeks time. If this is unsuccessful, the patient may require Antiarrhythmic therapy such as flecainide. 2. Hyperlipidemia: Her LDL is 55 and her HDL is 82. No indication for more aggressive lipid treatment at this time. 3. Thank you very much for the opportunity to participate in the cardiac care of your patient. Patient may be discharged home From a cardiac/atrial fibrillation standpointand follow-up with Dr. Cerda going forward. Code Visit Inpatient E&M: 18623 Subs Hosp L2
--- NOTE | 2019-02-18 13:35 | PCM.DC.SUM ---
Discharge Date and Diagnosis - Problem List Patient Problems: Active and Suspected Problems High cholesterol (Acute) Depression (Acute) New onset atrial fibrillation (Acute) Date of Admission: 02/17/19 Date of Discharge: 02/18/19 - Primary Discharge Diagnosis Active and Suspected Problems High cholesterol (Acute) Depression (Acute) New onset atrial fibrillation (Acute) - Secondary Discharge Diagnosis Chronic Problems Hypertension (Chronic) COPD (chronic obstructive pulmonary disease) (Chronic) Hospital Course and Treatment Imaging Results: CXR: IMPRESSION: No acute abnormality is seen. Echo: Interpretation Summary The estimated ejection fraction is 55 %. Unable to assess diastolic dysfunction due to arrhythmia. The left atrium is severely enlarged. Trivial tricuspid valve insufficiency. Right ventricular systolic pressure estimated to be 41 mmHg. Mild pulmonary hypertension. Compared to echo report dated 08/19/2017, LV function has remained the same, but pt now appears to be in atrial fibrillation. RVSP has increased from 32 to 41 mm Hg. Dobutamine Stress Echo: EKG Data Atrial flutter with controlled ventricular response. The patient was titrated from 10 mcg to a maximum of 20 mcg of dobutamine during the stress. The maximum heart rate attained was 157 beats per minute. This was 106% of maximum predicted heart rate. During dobutamine infusion, there were no ST or T wave changes noted to suggest ischemia. No clinical angina was noted. Interpretation Summary The estimated ejection fraction is 60 %. Normal, adequate, dobutamine echocardiogram. Negative for ischemia by EKG and echocardiographic criteria. No anginal symptoms noted. Baseline atrial flutter with controlled ventricular response with rare PVCs during infusion. Test terminated due to attainment of target heart rate. Final LVEF is 75%. Patient tolerated procedure well. No complications. Consults: Cardiology Operations: None Procedures: 2-D Echocardiogram, Stress test Summary of Care Provided: Per HPI: The patient is a 73 year old F with a PMH as below who presented to her PCPs office for routine follow-up, they have been adjusting her hypothyroidism medications because she is been having intermittent episodes of palpitations. On arrival to her PCPs office they performed an EKG and thought that she was in A. fib and therefore transferred her to the ER. She is on 360 mg of Cardizem p.o. daily therefore her rate is very controlled pump. On the EKG in the ER was felt that there is A. fib versus flutter. She denies any chest pain, lightheadedness, or dizziness. She had an echo about a year ago with a normal EF the left atrium was moderately enlarged at that time. She also had a Holter monitor which per report demonstrated largely PVCs and she was supposed to follow-up with cardiology but she never did. Hospital Course: 1. New onset A. fib flutter/HTN/HLD/lower extremity [id number]-old female presented to her PCPs office for follow-up of her chronic issue of palpitations. They have been adjusting her thyroid medication and have been lowering it, with her TSH tested on admission of 0.53. When she arrived to the PCPs office she had an EKG that showed A. fib/flutter and she was sent to the ER. She has been rate controlled because she is on Cardizem for blood pressure along with lisinopril. However she did have a cough and cardiology recommended transitioning from lisinopril to losartan. She had a dobutamine stress echo as well as a regular echo which did not show any ischemic changes and therefore she was cleared for discharge with follow-up as an outpatient with cardiology in 1 to 2 weeks. She will continue with her Lasix and will decrease her Cardizem dosing from 360 mg to 300 mg daily since she has had also had some pauses on telemetry. Given her age, gender, and history of hypertension she does qualify for anticoagulation she will be discharged on Eliquis 5 mg twice daily. She will need to follow-up with her primary care doctor in 3 to 5 days. Discharge planning was discussed with her and she did express understanding of the risks and benefits of discharge today. 2. Her other medical diagnoses were evaluated and her home medications were continued where appropriate Patient Problems: Active and Suspected Problems High cholesterol (Acute) Depression (Acute) New onset atrial fibrillation (Acute) - Physical Exam Vitals/I&O's: Vital Signs Temp Pulse Resp BP Pulse Ox 98.3 F 92 16 140/85 H 96 02/18/19 10:23 02/18/19 13:02 02/18/19 13:02 02/18/19 10:23 02/18/19 10:23 Oxygen Flow Rate (L/min) 2 Oxygen Delivery Method Room Air Weight: 250 lb Body Mass Index (BMI) 46.0 Intake and Output for Last 24 Hours 02/16/19 02/17/19 02/18/19 23:59 23:59 23:59 Intake Total 750 / 750 875 / 875 Balance 750 / 750 875 / 875 General: Alert, Oriented x3, Cooperative, No apparent distress HEENT: Atraumatic, PERRLA, EOMI, Normocephalic Oral: Moist Mucosa Neck: Supple, No JVD Lungs: Clear to auscultation, Normal air movement, No rhonchi, No wheeze, No rales, Diminished Cardiovascular: Regular rate, Regular Rhythm, Normal S1, Normal S2, No murmurs Abdomen: Soft, Non Tender, Non-Distended, No Hepato-splenomegaly, Obese Extremities: Capillary Refill Less than 3 Seconds, Edema - 1+ pitting bilaterally Skin: No rashes, No breakdown Neurological: Neuro grossly intact, Sensory exam intact to light touch and pain Psychiatry: Normal Affect, Appropriate Laboratory Results 02/17/19 13:20: WBC 6.6, RBC 4.28, Hgb 13.4, Hct 42.1, MCV 98.4, MCH 31.3, MCHC 31.8 L, RDW Std Deviation 46.5 H, RDW Coeff of Chuck 13.0, Plt Count 223, MPV 10.4, Immature Gran % (Auto) 0.200, Neut % (Auto) 55.9, Lymph % (Auto) 32.3, [place] % (Auto) 8.7, Eos % (Auto) 2.4, Baso % (Auto) 0.5, Absolute Neuts (auto) 3.7, Absolute Lymphs (auto) 2.12, Nucleated RBC % 0 02/17/19 13:20: Sodium 142, Potassium 3.8, Chloride 107, Carbon Dioxide 27.0, Anion Gap 8, BUN 8, Creatinine 0.90, Estim Creat Clear Calc 44.69, Est GFR (MDRD) Af Amer 79, Est GFR (MDRD) Non-Af 65, BUN/Creatinine Ratio 8.8 L, Glucose 91, Calcium 9.1, Troponin I < 0.015, TSH 0.53 02/17/19 13:20: Triglycerides 69, Cholesterol 151, LDL Cholesterol 55, VLDL Cholesterol 14, HDL Cholesterol 82 02/17/19 16:05: POC Glucose 96 02/17/19 20:38: POC Glucose 94 02/18/19 07:01: POC Glucose 108 02/18/19 11:35: POC Glucose 116 H Current Medications Atorvastatin Calcium (Lipitor) 20 mg PO QHS [facility] Citalopram Hydrobromide (Celexa) 20 mg PO DAILY [facility] Last Admin: 02/18/19 10:36 Dose: 20 mg Documented by: Dextrose (D50w Syringe) 0 gm IV X1 PRN; Protocol PRN Reason: Hypoglycemia Diltiazem HCl (Cardizem Cd) 300 mg PO DAILY [facility] Last Admin: 02/18/19 10:35 Dose: 300 mg Documented by: Furosemide (Lasix) 40 mg PO DAILY [facility] Last Admin: 02/18/19 10:37 Dose: 40 mg Documented by: Glucagon () 1 mg IM .X1 PRN PRN Reason: Hypoglycemia Insulin Human Lispro (Humalog Kwikpen (Bkc)) 0 unit SC ACHS [facility]; Protocol Last Admin: 02/18/19 11:45 Dose: Not Given Documented by: Ipratropium [place] (Atrovent) 0.5 mg INHALATION Q6HWA.RT [facility] Last Admin: 02/18/19 13:02 Dose: 0.5 mg Documented by: Levothyroxine Sodium (Synthroid) 25 mcg PO DAILY@0600 [facility] Last Admin: 02/18/19 06:54 Dose: 25 mcg Documented by: Loratadine (Claritin) 10 mg PO DAILY [facility] Last Admin: 02/18/19 10:36 Dose: 10 mg Documented by: Losartan Potassium (Cozaar) 25 mg PO DAILY [facility] Last Admin: 02/18/19 10:36 Dose: 25 mg Documented by: Nystatin (Mycostatin) 1 applic TOPICAL DAILY PRN PRN PRN Reason: skin Sodium Chloride () 10 - 40 ml IV UD PRN PRN Reason: SALINE FLUSH Call your doctor if you observe: Fever of 101 or Higher, Shortness of breath, Dizziness, Fainting spells, Swelling in the ankles, Chest pain, Increased palpitations (irregular heartbeat) Home Medications: Medications to take at Discharge Atorvastatin Calcium [Lipitor] 20 mg PO QHS 02/17/19 Cholecalciferol (Vitamin D3) [Vitamin D3] 2,000 unit PO DAILY 02/17/19 Citalopram [Celexa] 20 mg PO DAILY 02/17/19 Furosemide [Lasix] 40 mg PO DAILY 02/17/19 Levothyroxine [Synthroid] 25 mcg PO DAILY 02/17/19 Loratadine 10 mg PO DAILY 02/17/19 Nystatin 1 applic TP DAILY PRN PRN 02/17/19 Tiotropium [place] [Spiriva] 1 puff INHALATION DAILY 02/17/19 Apixaban [Eliquis] 5 mg PO BID #60 tab 02/18/19 Diltiazem CD [Cardizem CD] 300 mg PO DAILY #30 cap 02/18/19 Losartan Potassium [Cozaar] 25 mg PO DAILY #30 tab 02/18/19 Following Prescrptions Were Given to Patient: Diltiazem CD [Cardizem CD] 300 mg PO DAILY #30 cap Transmission Status: Pending to [facility] Losartan Potassium [Cozaar] 25 mg PO DAILY #30 tab Transmission Status: Pending to [facility] Apixaban [Eliquis] 5 mg PO BID #60 tab Transmission Status: Pending to [facility] Primary Care Physician: Thuy Anne NP-C [Primary Care Provider] - Please follow up with your Primary Care Physician in: 3-5 days Please Follow Up With: Delvin Cerda MD When: 2 weeks Disposition: Home Minutes spent on discharge:: 35 Patient Condition:: Stable Medical Necessity - Tobacco Use Smoking Status: Never smoker Tobacco Use: Secondhand Meaningful Use Info Meaningful Use Diagnoses (Choose all that apply): None applicable Code Visit OBSV E&M: 53813 Observation care discharge
--- NOTE | 2019-02-18 13:38 | PCM.DC ---
- Discharge Diagnoses Current Active Problems: Current Active and Chronic Problems Hypertension (Chronic) High cholesterol (Acute) COPD (chronic obstructive pulmonary disease) (Chronic) Depression (Acute) New onset atrial fibrillation (Acute) You will use the following diet at home:: Cardiac Your food should be the consistency of: Regular Your liquids should be the consistency of: Regular/Thin Call your doctor if you observe: Fever of 101 or Higher, Shortness of breath, Dizziness, Fainting spells, Swelling in the ankles, Chest pain, Increased palpitations (irregular heartbeat) Allergies/Adverse Reactions: Allergies Penicillins Allergy (Verified 02/17/19 14:31) Rash aspirin Adverse Reaction (Verified 02/17/19 13:09) Rash redness from knees down Medications to take at Discharge Atorvastatin Calcium [Lipitor] 20 mg PO QHS 02/17/19 Cholecalciferol (Vitamin D3) [Vitamin D3] 2,000 unit PO DAILY 02/17/19 Citalopram [Celexa] 20 mg PO DAILY 02/17/19 Furosemide [Lasix] 40 mg PO DAILY 02/17/19 Levothyroxine [Synthroid] 25 mcg PO DAILY 02/17/19 Loratadine 10 mg PO DAILY 02/17/19 Nystatin 1 applic TP DAILY PRN PRN 02/17/19 Tiotropium [place] [Spiriva] 1 puff INHALATION DAILY 02/17/19 Apixaban [Eliquis] 5 mg PO BID #60 tab 02/18/19 Diltiazem CD [Cardizem CD] 300 mg PO DAILY #30 cap 02/18/19 Losartan Potassium [Cozaar] 25 mg PO DAILY #30 tab 02/18/19 The following prescriptions were given: Diltiazem CD [Cardizem CD] 300 mg PO DAILY #30 cap Transmission Status: Received by [facility] Losartan Potassium [Cozaar] 25 mg PO DAILY #30 tab Transmission Status: Received by [facility] Apixaban [Eliquis] 5 mg PO BID #60 tab Transmission Status: Received by [facility] Primary Care Physician: Thuy Anne NP-C [Primary Care Provider] - Please follow up with your Primary Care Physician in: 3-5 days Test Results: Test results from this visit will be discussed in further detail at your follow-up appointment, if applicable. Please Follow Up With: Delvin Cerda MD When: 2 weeks
--- NOTE | 2019-02-18 14:50 | CASEMGMT ---
Pt to be sent home on Eliquis and med e-scribed to [facility] pharmacy previously. Call to Nishi in [facility] pharmacy and she states pt has no co-pay for the Eliquis at this time. Pt is ready for discharge at this time. Naga JUAN CM
--- NOTE | 2019-02-18 15:08 | CHAPLAIN ---
Type of Pastoral Visit _x__ Initial Visit ___ Follow-up Visit ___ On-call Visit ___ General Patient Visit ___ Spiritual Assessment ___ Family Conference ___ Bereavement ___ Rapid Response ___ Code Blue ___ Other (describe below) Pastoral Care Referral From _x__ Patient ___ Family ___ Nurse ___ Physician ___ Ultrasound Supervisor ___ Supervisor Paper Testing ___ Other (describe below) Sacrament/Intervention _x__ Active listening ___ Anointing ___ Taoist ___ Bereavement ___ Communion _x__ Dina exploration ___ _x__ Life review _x__ Prayer ___ Reconciliation ___ Sacrament of Sick _x__ Supportive presence ___ Wedding ___ Other (describe below) Pastoral Comments patient expressed her dina in God and had several questions to ask and discuss; pt goal is to get home soon; prayer welcomed
== END 2019-02-18 13:38 | disposition home or self-care (01) ==
LOC: ED 14:19 → PCU 15:09
PROVIDERS: Internal Medicine Cardiovascular Disease; Admitting Provider Internal Medicine; Emergency Provider Emergency Medicine; Family Provider Nurse Practitioner; PCP Nurse Practitioner; Referring Provider Internal Medicine; Visit Provider Family Medicine
DX: I48.91 Unspecified atrial fibrillation (principal); E78.5 Hyperlipidemia, unspecified; I10 Essential (primary) hypertension; R60.0 Localized edema; J44.9 Chronic obstructive pulmonary disease, unspecified; F32.9 Major depressive disorder, single episode, unspecified; I49.1 Atrial premature depolarization; E03.9 Hypothyroidism, unspecified; E66.01 Morbid (severe) obesity due to excess calories; I07.1 Rheumatic tricuspid insufficiency; I48.92 Unspecified atrial flutter; Z68.42 Body mass index [BMI] 45.0-49.9, adult; Z79.899 Other long term (current) drug therapy
CPT/HCPCS: 71045; 80048; 80061; 82962; 84443; 84484; 85025; 93005; 93017; 93306; 93350; 94640; 96372; 99218; 99285; J7040; A4216; G0378

== ENCOUNTER → 2019-03-17 11:49 | Day surgery (SDC) | payer MEDICARE, SELFPAY ==
[2019-03-02 13:31] VITALS: BMI 45.2
== END ==
PROVIDERS: Family Provider Nurse Practitioner; PCP Nurse Practitioner; Referring Provider Internal Medicine Cardiovascular Disease; Visit Provider Internal Medicine Cardiovascular Disease
DX: Z01.810 Encounter for preprocedural cardiovascular examination (principal)
CPT/HCPCS: 93005

== ENCOUNTER → 2019-09-07 10:17 | Outpatient (CLI) | payer MEDICARE, MEDICAID, SELFPAY ==
[2019-03-02 13:31] VITALS: BMI 45.2
[2019-09-07 12:05] LABS: Vitamin D,25 Hydroxy 32.2 ng/mL
[2019-09-07 12:12] LABS: ALB/GLOB Ratio 0.9 RATIO (0.9-2.4); AST(SGOT) 15 U/L (15-37); Alanine Aminotransfer ALT/SGPT 20 U/L (13-56); Albumin, Serum 3.6 g/dL (3.2-5.0); Alkaline Phosphatase 132 U/L (45-117); Anion Gap 12 (5-15); BUN 9 mg/dL (7-18); BUN/Creat Ratio 10.9 RATIO (10-20); Calcium,Total 9.5 mg/dL (8.5-10.1); Chloride 105 mmol/L (98-107); Cholesterol 127 mg/dL (200); Creatinine, Serum 0.83 mg/dL (0.55-1.02); EST Glomerular Filtration Rate 72 mL/min (>60); Est Glom Filt Rate - Afr Amer 87 mL/min (>60); Globulin 4.2 g/dL (2.2-4.2); Glucose 95 mg/dL (74-106); High Density Lipoprotein 60 mg/dL; Potassium 3.7 mmol/L (3.5-5.1); Protein, Total 7.8 g/dL (6.4-8.2); Sodium Level 140 mmol/L (136-145); Thyroid Stim Hormone (TSH) 0.01 uIU/mL (0.358-3.74); Triglycerides 75 mg/dL; Very Low Density Lipoprotein 15 mg/dL (5-40)
== END ==
PROVIDERS: PCP Nurse Practitioner; Referring Provider Nurse Practitioner; Visit Provider Nurse Practitioner
DX: I10 Essential (primary) hypertension (principal); E03.9 Hypothyroidism, unspecified; E78.5 Hyperlipidemia, unspecified; E55.9 Vitamin D deficiency, unspecified
CPT/HCPCS: 36415; 80053; 80061; 82306; 84443

== ENCOUNTER → 2019-09-30 14:08 | Outpatient (CLI) | payer MEDICARE, SELFPAY ==
[2019-09-30 13:10] VITALS: BMI 43.9
[2019-09-30 17:09] LABS: Anion Gap 7 (5-15); BUN 11 mg/dL (7-18); Calcium,Total 9.7 mg/dL (8.5-10.1); Chloride 107 mmol/L (98-107); Creatinine, Serum 0.84 mg/dL (0.55-1.02); EST Glomerular Filtration Rate 70 mL/min (>60); Est Glom Filt Rate - Afr Amer 85 mL/min (>60); Glucose 84 mg/dL (74-106); Potassium 3.9 mmol/L (3.5-5.1); Sodium Level 137 mmol/L (136-145)
== END ==
PROVIDERS: PCP Nurse Practitioner; Referring Provider Internal Medicine Cardiovascular Disease; Visit Provider Internal Medicine Cardiovascular Disease
DX: I48.91 Unspecified atrial fibrillation (principal)
CPT/HCPCS: 36415; 80048

== ENCOUNTER 2019-10-06 08:45 | Day surgery (SDC) | payer MEDICARE, SELFPAY ==
[2019-09-30 13:10] VITALS: BMI 43.9
[2019-10-05 11:58] VITALS: BMI 43.9
--- NOTE | 2019-10-06 09:44 | CARDIOVERS_ITS ---
Cardioversion Cardioversion: DC cardioversion: The patient was brought to the [employer] [facility] in the fasting state, the risk/benefits of the procedure were thoroughly explained to the patient and informed consent was obtained. Defibrillator pads placed in the AP position, and with the assistance of Dr. Ata Welsh the patient was given 40 mg of IV propofol. Once adequate sedation was obtained the patient received a single 200 J biphasic synchronized shock which converted her from atrial fibrillation to sinus rhythm with PACs. This rhythm persisted for a few minutes, but then deteriorated into atrial fibrillation again. The patient spontaneously awoke, moves all 4 extremities and tolerate procedure well. Has a patient has severe left atrial enlargement, I do not believe will be beneficial to resedate the patient and proceed with additional cardioversions. At this point the patient will be treated with amiodarone 200 mg p.o. daily for a period of 3 to 4 weeks followed by repeat DC cardioversion should she not convert chemically with amiodarone alone. Conclusions: Initially successful DC cardioversion, but then reverted back to at rial fibrillation. I recommended no further additional shocks today, the patient will be treated with amiodarone 200 mg p.o. daily for 3 to 4 weeks time followed by repeat cardioversion if indicated. She will undergo a EKG in 1 week's time to monitor her QT corrected interval as well as her rhythm. Patient taught procedure well. No complications. Many thanks to Dr. Welsh.
--- NOTE | 2019-10-06 10:12 | PCM.OP.PRO ---
Procedure Report Date of Procedure: 10/06/19 CONSCIOUS SEDATION REPORT DATE OF SERVICE: October 06, 2019 BRIEF HISTORY OF PRESENT ILLNESS: The patient is a 73-year-old female who presented to [facility] for an elective outpatient cardioversion due to underlying atrial fibrillation. The patient is currently systemically anticoagulated on Eliquis. Her last surface echocardiogram revealed an ejection fraction of approximately 55%. The patient denies ever having experienced any prior anesthetic complications. She is a lifelong non-smoker, but does report significant secondhand exposure. She claims to have been evaluated for sleep apnea in the past, with her work-up apparently being negative. Nevertheless, she does sleep with supplemental oxygen on a nightly basis. PHYSICAL EXAMINATION: VITAL SIGNS: Reviewed and were acceptable. GENERAL: The patient is a morbidly obese female, in no apparent distress, speaking in full sentences. HEENT: Normocephalic, atraumatic. Mucous membranes are moist and pink. Good mouth opening noted. Trachea is midline. MPIII CHEST: S1, S2 irregularly irregular. No murmurs, rubs or gallops were noted. LUNGS: Clear to auscultation bilaterally without appreciable wheezes, rales or rhonchi. ABDOMEN: Soft, nontender, nondistended. Positive bowel sounds. EXTREMITIES: There is no clubbing, cyanosis or edema. ASA Class: II DESCRIPTION OF PROCEDURE: After confirmation of informed consent, the patient's anesthesia plan was reviewed in detail. Propofol was chosen. Risks and benefits were reviewed and the patient agreed to proceed. At 0932, the patient was given 40 mg of propofol. The patient achieved an appropriate level of sedation and was given a 200 joule synchronized cardioversion by Dr. Cerda at the bedside. Although initially successful in achieving normal sinus rhythm, a short time later, the patient reverted back to atrial fibrillation. The patient was monitored until 0943, at which time she reached her baseline mental status and function. The patient tolerated the procedure well. COMPLICATIONS: None ESTIMATED BLOOD LOSS: None RECOMMENDATIONS: Okay to recover in usual fashion. [id number]: Other Procedure See Report - [id number]
== END 2019-10-06 11:00 | disposition home or self-care (01) ==
LOC: CLSP 08:47
PROVIDERS: PCP Nurse Practitioner; Referring Provider Internal Medicine Cardiovascular Disease; Visit Provider Internal Medicine Cardiovascular Disease
DX: I48.91 Unspecified atrial fibrillation (principal); E66.01 Morbid (severe) obesity due to excess calories; Z79.01 Long term (current) use of anticoagulants
CPT/HCPCS: 92960; 93005; J7040

== ENCOUNTER → 2019-11-10 10:59 | Outpatient (CLI) | payer MEDICARE, MEDICAID, SELFPAY ==
[2019-11-10 09:39] VITALS: BMI 44.8
[2019-11-10 12:27] LABS: Anion Gap 5 (5-15); BUN 24 mg/dL (7-18); Calcium,Total 9.5 mg/dL (8.5-10.1); Chloride 108 mmol/L (98-107); Creatinine, Serum 1.09 mg/dL (0.55-1.02); EST Glomerular Filtration Rate 52 mL/min (>60); Est Glom Filt Rate - Afr Amer 63 mL/min (>60); Glucose 91 mg/dL (74-106); Potassium 3.6 mmol/L (3.5-5.1); Sodium Level 140 mmol/L (136-145)
== END ==
PROVIDERS: PCP Nurse Practitioner; Referring Provider Internal Medicine Cardiovascular Disease; Visit Provider Internal Medicine Cardiovascular Disease
DX: I48.91 Unspecified atrial fibrillation (principal); Z79.01 Long term (current) use of anticoagulants; Z79.899 Other long term (current) drug therapy
CPT/HCPCS: 36415; 80048

== ENCOUNTER → 2020-03-14 08:25 | Outpatient (CLI) | payer MEDICARE, MEDICAID, SELFPAY ==
[2020-03-08 10:05] VITALS: BMI 43.5
--- NOTE | 2020-03-14 16:26 | PFTCOMP_ITS ---
COMPLETE PULMONARY FUNCTION TEST INTERPRETATION Brief HPI: Patient is a 74 year old female, currently under the care of Usha Sifuentes, who presents to [facility] for complete pulmonary function tests secondary to diagnosis of A. fib. Respiratory therapist reports good effort and reproducible results. However, patient did have significant difficulty with exhalation and DLCO test Interpretation: Forced expiration spirometry shows no large airways obstructive ventilatory defect with an FEV1 of 67% predicted. There is a significant bronchodilator response in FVC by strict ATS criteria. Spirograms are of good quality and plateau slowly, indicating slowly emptying areas of the lungs. The respiratory flow volume loop shows decreased expiratory flow rates at all lung volumes consistent with airway obstruction. Lung volumes by body plethysmography show a normal total lung capacity at 3.87 L, 88% predicted. All other lung volumes are within normal limits. Diffusion capacity by carbon monoxide is decreased at 43% predicted. The airway resistance is elevated. No previous pulmonary function tests were available for review. Impression: Patient with significant difficulty with testing, so caution recommended. Findings are suggestive of a moderate obstructive ventilatory defect with a symmetric reduction diffusion capacity.
== END ==
PROVIDERS: PCP Nurse Practitioner; Referring Provider Physician Assistant Medical; Visit Provider Physician Assistant Medical
DX: I48.0 Paroxysmal atrial fibrillation (principal); Z79.899 Other long term (current) drug therapy
CPT/HCPCS: 94060; 94726; 94729

== ENCOUNTER 2020-05-03 09:03 | Day surgery (SDC) | payer MEDICARE, MEDICAID, SELFPAY ==
[2020-03-23 13:15] VITALS: BMI 44.6
[2020-04-20 13:29] VITALS: BMI 44.4
[2020-05-03] VITALS (7 sets, daily range): BP systolic 97–146; BP diastolic 70–82; PULSE 54–76; RESP 16; TEMP 36.6–36.8; O2SAT 95–99; BMI 44.2
--- NOTE | 2020-05-03 09:37 | H&P.OPEN ---
History of Present Illness Date of Admission: 05/03/20 The patient is a 74 year old F presents for colonoscopy due to positive Cologuard. Patient is on Eliquis due to A. fib. Patient states that she may have had to strain with the sample but states the stool was brown denies any blood. Patient's last colonoscopy was 2009 at [facility] negative per patient. Patient denies any abdominal pain, nausea, vomiting, reflux. Patient states she has daily bowel movements. Patient sister was diagnosed with colon cancer at age 69. Past Medical/Surgical History - Planned Operation Planned Operative Procedure/s: cscope Date of Operative Procedure: 05/03/20 Permit Signed: No S.O.S: No Is This Patient Having a Total Joint: No - Previous Hospitalizations/Surgeries HX Hospitalizations: No HX of Surgeries: appendectomy. cscope. cardioversion 2019 Any Problems With Anesthesia: No You/Your Family Experience Fever (Hyperthermia) With Anes: No Cholinesterase deficiency: No - Cardiovascular Hx Chest Pain within Last 2 months: No Hx of Irregular Heartbeat and/or Afib: Yes - afib/saw whg last visit 04/2020 Hx Heart Attack: No Hx Congestive Heart Failure: No Hx Rheumatic Fever: No Hx Hypertension: Yes - controlled with meds Hx Internal Defibrillator: No Hx Pacemaker: No Hx Cardiac Catheterization: No Hx Cardiac Surgery/Stents/Etc.: Yes - cardioversion 2019 Hx Stress Test: Yes - stress echo 2019/echo 2018 HX Edema: Yes - occ lower legs Hx Pain in Legs when Walking/Leg Cramps: No - Respiratory Chronic Cough: No HX of Shortness of Breath: Yes - sob with 2 flights of stairs Hx Chronic Obstructive Pulmonary Disease (COPD): Yes - inhaler Hx Asthma: No Hx Emphysema: No Hx Sleep Apnea: No - no nelson, uses supplemental O2 at night Hx Oxygen Use at Home: Yes - 2l nc at night Hx Respiratory Tract Infection/Cold (presently): No Do You Snore Loudly (louder than talking or can be heard): No Do You Often Feel Tired/ Fatigued/ Sleepy Dring Daytime?: No Has Anyone Observed You Stop Breathing During Sleep?: No Result (for STOP score): Negative Hx Smoking: No Smoking Status: Never smoker - Gastrointestinal Hx Gastroesophageal Reflux: No Hx Gastrointestinal Disorders: No Hx Gastrointestinal Bleed: No Hx Ulcer: No Hx Hiatal Hernia: No Difficulty Chewing/Swallowing: No Recent Onset of Swallowing Problems: No Special diet followed at home: No Hx Unplanned Weight Loss of 20#: No HX Unplanned Weight Gain of 20#: No - Neurological Hx Seizures: No HX Syncope/Blackout Spells/Unconsciousness: No Hx CVA/Stroke: No Hx Transient Ischemic Attacks (TIA): No Hx Multiple Sclerosis: No Hx Parkinson's Disease: No Hx Head/Neck Injury: No Hx Headaches: No Hx Back Injury/Pain: No Recent Onset of Speech Difficulty: No Restless Legs: No Does patient have nerve stimulator: No Patient instructed to have device shut off: No Rep notified?: No - Blood Disorder Hx Leukemia: No Bleeding Tendencies: No - not prior to eliquis Hx Deep Vein Thrombosis: No Hx High Cholesterol: Yes - on med Blood Transmitted Disease: No Hx Hepatitis: No Hx Cirrhosis: No Hx Anemia: No Hx Blood Disorders: No - Reproduction : No Is Patient Lactating: No Hx Hysterectomy: No Hx Tubal Ligation: No Are You Post Menopause: Yes - Genitourinary Hx Renal Disease: No Hx Dialysis: No - Musculoskeletal Hx Arthritis: Yes Hx Rheumatoid Arthritis: No Hx Gout: No Recent Onset of an Orthopedic Problem: No - Endocrine Hx Diabetes: No Thyroid Disease: Yes - on med Hx Steroid Therapy: No - Psycho/Social Hx Substance Use: No Hx Alcohol Use: No Hx Anxiety: Yes - on med Hx Depression: Yes - on med Mental Illness: No Hx Dementia: No - Miscellaneous Hx Cancer: No Recent Exposure to Contagious Disease: No Active MRSA: No Hx of C-Diff: No Any Loose Teeth: No Allergies Penicillins Allergy (Verified 04/26/20 09:59) Rash aspirin Adverse Reaction (Verified 04/26/20 09:59) Rash redness from knees down Maternal Family History: Family History (Last Reviewed 04/20/20 @ 16:05 by Usha Sifuentes PA, PA) Mother Cancer Father CAD (coronary artery disease) Hypertension Sister Cancer Diabetes Hypertension Cancer Paternal Family History: Family History (Last Reviewed 04/20/20 @ 16:05 by Usha GOLDEN, PA) Mother Cancer Father CAD (coronary artery disease) Hypertension Sister Cancer Diabetes Hypertension Heart Disease - Discharge Is Pt Admitted From a Prison, or a Nursing Home: No Special Equipment Used at Home: walker After D/C, Where Do you Plan to Go: Return Home - From the PAT History Number of Risk Factors: 5 - Physical Exam Vitals/I&O's: Body Mass Index (BMI) 44.4 General: Alert, Oriented x3, Cooperative, No apparent distress HEENT: Atraumatic Lungs: Normal air movement Cardiovascular: Regular rate Abdomen: Soft, Non Tender, Non-Distended Neurological: Cranial nerves II-XII grossly intact Psych/Mental Status: Normal Affect Microbiology Past 72 Hours 05/02/20 10:35 Interface Orders SARS-CoV-2 Antigen (Rapid) - Final Assessment/Plan All Active Problems (Last Reviewed 04/20/20 @ 16:05 by Usha GOLDEN, PA) Anemia (Acute) Anxiety and depression (Acute) Osteopenia (Acute) Venous insufficiency (Acute) History of colonoscopy (Acute ~2009) Depression (Acute) 74-year-old female with positive Cologuard Procedure Criteria Procedure Type: Elective COVID Risk Discussion: The surgeon/proceduralist and patient have discussed in detail the risk of exposure to and/or potential harm posed by the COVID-19 virus with having a surgery/procedure at this time versus the risk of delaying the surgery/procedure. It is not possible to know either the risk of delaying the surgery or procedure or chance of getting an infection with perfect accuracy, but a joint decision was made between the patient and the surgeon/proceduralist to proceed at this time with the scheduled surgery/procedure as indicated on the consent form. Surgery Risks - Colonoscopy I discussed with the patient the risks of the procedure: Yes Risks Include but are not Limited To: Risks include but are not limited to: Bleeding, perforation requiring further surgery, inability to complete colonoscopy requiring barium enema.
[2020-05-03] MEDS: Lactated Ringers 1,000 ML 100 ML IV (10:15)
--- NOTE | 2020-05-03 10:30 | COLBX_PTH ---
PATIENT: OSCAR MAYS LOC: EN U#:[id number] AGE/SX: 74/F ROOM: RE05/03/[address]: Dr. Poppy Lira MD : 1945 BED: DIS: 05/03/2020 SPEC #: [id number] RECD: 05/03/20 11:19 STATUS: SHEYLA KEDAR #: [id number] PARAG: 05/03/20 10:[address]: Poppy Lira DEPT: SURGICAL PATHOLOGY RECD BY: Marissa Helms ENTERED: 05/03/20 12:02 SP TYPE: COLON BX KIANA DR: Thuy Anne, INGREDIENT HANDLER-C Tissues: A - COLON BIOPSY B - Sigmoid colon biopsy Procedures: Surgery Specimen Level IV HEADER OPERATION: Colonoscopy (MAC) PRE-OP DIAGNOSIS: Anemia TISSUE SUBMITTED: A - Biopsies of hepatic flexure polyp - 3 polyps, B - Biopsy of sigmoid polyp MICROSCOPIC DIAGNOSIS A. Colonic polyp at hepatic flexure, biopsy: Fragments of tubular adenoma. B. Sigmoid colon polyp, biopsy: Polypoid fragment of benign colonic mucosa. See comment. AM:li 05/04/2020 COMMENT B. Neither hyperplastic nor adenomatous change is identified. Clinical correlation is suggested. MICROSCOPIC DESCRIPTION Slides are reviewed. GROSS DESCRIPTION A - Received in fixative is one container labeled with the patient's name and designated hepatic flexure polyp biopsy. The specimen consists of multiple irregular fragments of light becerra soft tissue that in aggregate measure 0.5 x 0.5 x 0.1 cm. The specimen is totally submitted in one cassette. B - Received in fixative is one container labeled with the patient's name and designated biopsy of sigmoid polyp. The specimen consists of one irregular fragment of light becerra soft tissue that measures 0.5 x 0.2 x 0.1 cm. The specimen is totally submitted in one cassette. / AM:li 05/03/20 TC:5 CPT: 01795 x2
--- NOTE | 2020-05-03 11:16 | OP.COLON_ITS ---
Patient Name: Yue Flowers Procedure Date: 05/03/2020 10:21 AM Date of : 1945 Age: 74 Procedure: Colonoscopy Indications: Positive Cologuard test Providers: Poppy Lira MD Referring MD: Thuy Anne NP Medicines: Monitored Anesthesia Care Patient Profile: This is a 74 year old female. Last Colonoscopy: 2009. Complications: No immediate complications. Procedure: Pre-Anesthesia Assessment: - Prior to the procedure, a History and Physical was performed, and patient medications and allergies were reviewed. The patient's tolerance of previous anesthesia was also reviewed. The risks and benefits of the procedure and the sedation options and risks were discussed with the patient. All questions were answered, and informed consent was obtained. Prior Anticoagulants: The patient has taken Eliquis (apixaban), last dose was 3 days prior to procedure. ASA Grade Assessment: Per anesthesia. After reviewing the risks and benefits, the patient was deemed in satisfactory condition to undergo the procedure. After I obtained informed consent, the scope was passed under direct vision. Throughout the procedure, the patient's blood pressure, pulse, and oxygen saturations were monitored continuously. The pediatric colonoscope was introduced through the anus and advanced to the cecum, identified by the appendiceal orifice, ileocecal valve and palpation. The colonoscopy was performed without difficulty. The patient tolerated the procedure well. The quality of the bowel preparation was good. Scope In: 10:42:46 AM Scope Withdrawal Time 0 hours 13 minutes 51 seconds Scope Out: 11:07:44 AM Total Procedure Duration Time 0 hours 24 minutes 58 seconds Findings: Hemorrhoids were found on perianal exam. Four sessile polyps were found in the sigmoid colon and hepatic flexure. The polyps were less than 5 mm in size. These polyps were removed with a cold biopsy forceps. Resection and retrieval were complete. The exam was otherwise without abnormality on direct and retroflexion views. Impression: - Hemorrhoids found on perianal exam. - Four less than 5 mm polyps in the sigmoid colon and at the hepatic flexure, removed with a cold biopsy forceps. Resected and retrieved. - The examination was otherwise normal on direct and retroflexion views. Recommendation: - Discharge patient to home. - Resume previous diet. - Resume Eliquis (apixaban) at prior dose tonight. - Await pathology results. - Repeat colonoscopy in 3 - 5 years for surveillance based on pathology results. Procedure Code(s): --- Professional --- 42461, Colonoscopy, flexible; with biopsy, single or multiple Diagnosis Code(s): --- Professional --- K64.9, Unspecified hemorrhoids D12.5, Benign neoplasm of sigmoid colon D12.3, Benign neoplasm of transverse colon (hepatic flexure or splenic flexure) R19.5, Other fecal abnormalities CPT copyright 2017 [employer]. All rights reserved. The codes documented in this report are preliminary and upon office worker review may be revised to meet current compliance requirements. MD Poppy Farah MD 05/03/2020 11:16:25 AM This report has been signed electronically. Number of Addenda: 0 Note Initiated On: 05/03/2020 10:21 AM
--- NOTE | 2020-05-03 11:16 | OP.CCLET_ITS ---
05/03/2020 Thuy Anne, BARON [address] [place] [address] Re : Colonoscopy procedure for Yue Flowers Dear Ms. Anne This procedure was performed on Sunday, May 03, 2020. My impressions and recommendations are as follows: Impressions : - Hemorrhoids found on perianal exam. - Four less than 5 mm polyps in the sigmoid colon and at the hepatic flexure, removed with a cold biopsy forceps. Resected and retrieved. - The examination was otherwise normal on direct and retroflexion views. Recommendations : - Discharge patient to home. - Resume previous diet. - Resume Eliquis (apixaban) at prior dose tonight. - Await pathology results. - Repeat colonoscopy in 3 - 5 years for surveillance based on pathology results. My findings are described in the full procedure note, which is enclosed. If I can be of further assistance, please feel free to contact me at Doctor phone number(s): , Work: . Sincerely, MD Poppy Farah MD 05/03/2020 11:16:25 AM This report has been signed electronically.
== END 2020-05-03 12:20 | disposition home or self-care (01) ==
LOC: EN 09:04 → AC 09:04
PROVIDERS: PCP Nurse Practitioner; Referring Provider Nurse Practitioner; Visit Provider Surgery
PROC: 0DJD8ZZ Inspection of Lower Intestinal Tract, Via Natural or Artificial Opening Endoscopic (ICD-10-PCS; CPT 45378; principal; 2020-05-03 10:25)
DX: D12.3 Benign neoplasm of transverse colon (principal); K63.5 Polyp of colon; K64.9 Unspecified hemorrhoids; Z80.0 Family history of malignant neoplasm of digestive organs; Z20.828 Contact with and (suspected) exposure to other viral communicable diseases; I10 Essential (primary) hypertension; J44.9 Chronic obstructive pulmonary disease, unspecified; I87.2 Venous insufficiency (chronic) (peripheral); E06.9 Thyroiditis, unspecified; F32.9 Major depressive disorder, single episode, unspecified; F41.9 Anxiety disorder, unspecified; I48.91 Unspecified atrial fibrillation; E78.00 Pure hypercholesterolemia, unspecified; M85.80 Other specified disorders of bone density and structure, unspecified site; M19.90 Unspecified osteoarthritis, unspecified site; Z78.0 Asymptomatic menopausal state; Z86.2 Personal history of diseases of the blood and blood-forming organs and certain disorders involving the immune mechanism; Z79.01 Long term (current) use of anticoagulants; Z79.899 Other long term (current) drug therapy
CPT/HCPCS: 45380; 87426; 88305; C9803; J7120; J2405

== ENCOUNTER → 2020-09-13 11:30 | Outpatient (CLI) | payer MEDICARE, SELFPAY ==
[2020-09-13 10:25] VITALS: BMI 44.6
--- NOTE | 2020-09-13 11:34 | RAD_ITS ---
STUDY: X-RAY CHEST REASON FOR EXAM: Female, 74 years old. Shortness of breath TECHNIQUE: PA and lateral views of the chest. COMPARISON: 02/17/2019 FINDINGS: There is hyperinflation of the lungs consistent with chronic obstructive lung disease (COPD). There is no demonstrated pleural abnormality. Normal size heart. Normal mediastinum and elia. Normal visualized pulmonary arteries. Normal visualized aortic arch and descending thoracic aorta. Normal visualized thoracic spine. Normal visualized ribs, clavicles, and shoulders. There is no demonstrated abnormality of the visualized soft tissue structures of the upper abdomen. RAD/Chest PA and Lateral IMPRESSION: Emphysema without pneumonia or atelectasis. Electronically Signed: J Luis Wilburn MD at 8:50 EDT Tel , Service support ,
== END ==
PROVIDERS: PCP Nurse Practitioner; Referring Provider Internal Medicine Cardiovascular Disease; Visit Provider Internal Medicine Cardiovascular Disease
DX: I48.0 Paroxysmal atrial fibrillation (principal); Z79.899 Other long term (current) drug therapy
CPT/HCPCS: 71046

== ENCOUNTER 2021-06-14 13:08 | Outpatient (CLI) | payer MEDICARE, MEDICAID, SELFPAY ==
--- NOTE | 2021-06-15 13:11 | PFT ---
INTRODUCTION: The patient is a 75-year-old female that presents for pulmonary function studies secondary to a diagnosis of high risk medication use. Respiratory therapy reported good patient effort. Bronchodilators were used during testing. INTERPRETATION: Forced expiration spirometry demonstrates no evidence of a large airways obstructive ventilatory defect. Postbronchodilator change noted in FVC was likely secondary to the patient's inability to meet exhalation criteria prior to medication. Body plethysmography was performed and revealed a decreased TLC to 2.49 L, 57% of predicted, indicative of a severe restrictive ventilatory impairment. Diffusing capacity by single breath CO is reduced at 51% of predicted. IMPRESSION: Severe restrictive ventilatory impairment with symmetric reduction in diffusing capacity.
== END 2021-06-14 23:59 | disposition home or self-care (01) ==
LOC: PSN 13:10
PROVIDERS: PCP Nurse Practitioner; Referring Provider Internal Medicine Critical Care Medicine; Visit Provider Internal Medicine Critical Care Medicine
DX: Z79.899 Other long term (current) drug therapy (principal)
CPT/HCPCS: 94060; 94726; 94729

== ENCOUNTER → 2022-07-03 | Outpatient (CLI) | payer MEDICARE, MEDICAID, SELFPAY ==
--- NOTE | 2022-07-04 05:51 | PFTCOMP ---
COMPLETE PULMONARY FUNCTION TEST INTERPRETATION Brief HPI: Patient is a 76-year-old female, currently under the care of Sameera Stokes, who presents to [facility] for complete pulmonary function tests secondary to diagnosis of dyspnea and amiodarone. Respiratory therapist reports good effort and reproducible results. Interpretation: Forced expiration spirometry shows a mild large airways obstructive ventilatory defect with an FEV1 of 75% predicted. There is no significant bronchodilator response by strict ATS criteria. Spirograms are of good quality and plateau slowly, indicating slowly emptying areas of the lungs. The respiratory flow volume loop shows decreased expiratory flow rates at high lung volumes consistent with small airways obstruction. Lung volumes by body plethysmography show a normal total lung capacity at 4.36 L, 100% predicted. All other lung volumes are within normal limits. Diffusion capacity by carbon monoxide is normal at 80% predicted. The airway resistance is slightly elevated. Compared to previous pulmonary function tests from 06/14/2021, there is been significant improvement in lung volumes and DLCO, likely secondary to improved volume status. Impression: Irreversible mild large airways obstructive ventilatory defect with normalization of lung volumes and DLCO compared to previous.
== END | disposition home or self-care (01) ==
PROVIDERS: PCP Nurse Practitioner Family; Referring Provider Nurse Practitioner Gerontology; Visit Provider Nurse Practitioner Gerontology
DX: Z79.899 Other long term (current) drug therapy (principal)
CPT/HCPCS: 94060; 94726; 94729